=== PATIENT | female | born 1970 | race Caucasian/White ===

== ENCOUNTER 2019-05-14 16:07 | Emergency (ER) | payer SELFPAY ==
[~2019-05-14] VITALS: Ht 175.3 cm; Wt 111.4 kg
[2019-05-14 16:38] VITALS: BP 108/55; TEMP 98.8
[2019-05-14] MEDS ORDERED: REXULTI1 MG PO (17:34)
[2019-05-14] MEDS ORDERED: KLONOPIN 0.5MG0.5 MG PO (17:35)
[2019-05-14] MEDS ORDERED: AMBIEN 10MG10 MG PO (17:36)
[2019-05-14 18:15] VITALS: PULSE 82
== END 2019-05-14 18:15 | disposition home or self-care (01) ==
LOC: COL.ER 16:07
DX: J10.1 Influenza due to other identified influenza virus with other respiratory manifestations (principal); F17.210 Nicotine dependence, cigarettes, uncomplicated; F41.9 Anxiety disorder, unspecified; F32.9 Major depressive disorder, single episode, unspecified